=== PATIENT | female | born 1995 | race Caucasian/White ===

== ENCOUNTER 2017-01-27 22:37 | Inpatient (IN) | payer OTHER ==
[~2017-01-27] VITALS: Ht 175.3 cm; Wt 99.8 kg
[2017-01-27] MEDS ORDERED: MORPHINE SULFATE IV STA (22:58)
[2017-01-27] MEDS ORDERED: NS 1000ML 1,000 ML IV STA (22:58)
[2017-01-27] MEDS ORDERED: ZOFRAN IV STA (22:58)
--- NOTE | 2017-01-27 23:03 | ER.PDOC ---
General Chief Complaint: Abdomen Pain Stated Complaint: SEVERE R LOWER ABD PAIN Time seen by MD: 23:02 Source: patient Exam Limitations: no limitations History of Present Illness Initial Comments RLQ abdominal pain Timing/Duration: 1-3 hours Severity/Quality: moderate Radiation: no radiation Associated Symptoms: nausea/vomiting Exacerbated by: nothing Relieved By: nothing Allergies: Coded Allergies: No Known Allergies (Unverified , 01/11/14) Home Meds No Active Prescriptions or Reported Meds Vital Signs First Vital Signs Date Time Temp Pulse Resp B/P (MAP) Pulse Ox O2 Delivery O2 Flow Rate FiO2 01/27/17 22:45 98.5 118 22 98 01/27/17 22:55 124/47 (72) Last Vital Signs Date Time Temp Pulse Resp B/P (MAP) Pulse Ox O2 Delivery O2 Flow Rate FiO2 01/27/17 22:55 98.5 118 22 124/47 (72) 98 Past Medical History Medical History: no pertinent history Surgical History: no surgical history LMP (females 10-50): 01/18/2017 Social History Smoking: less than 1 pack/day Alcohol Use: occassionally Drug Use: none Constitutional: no symptoms reported Respiratory: no symptoms reported Cardiovascular: no symptoms reported Gastrointestinal: see HPI Genitourinary: no symptoms reported Musculoskeletal: no symptoms reported All Other Systems: Reviewed and Negative Physical Exam General Appearance: No Apparent Distress, WD/WN Neck: Non-Tender, Full Range of Motion, Supple, Normal Inspection Respiratory: chest non-tender, lungs clear, normal breath sounds, no respiratory distress, no accessory muscle use Cardiovascular: Normal Peripheral Pulses, Regular Rate, Rhythm, No Edema, No Gallop, No JVD, No Murmur Gastrointestinal: Normal Bowel Sounds, No Organomegaly, No Pulsatile Mass, Tenderness (RLQ) Back: Normal Inspection, No CVA Tenderness, No Vertebral Tenderness Extremities: Normal Range of Motion, Non-Tender, Normal Inspection, No Pedal Edema, No Calf Tenderness, Normal Capillary Refill, Pelvis Stable Neurologic/Psychiatric: sumo wrestler II-XII NML as Tested, No Motor/Sensory Deficits, Alert, Normal Mood/Affect, Oriented x [address] Carpenter present in the ED and admitted the patient. EKG/XRAY/CT/US CT Comments: Acute appendicitis Course Blood Pressure Systolic: 124 Blood Pressure Diastolic: 47 Blood Pressure Mean: 72 Departure Time of Disposition: 00:42 Disposition: 09 ADMITTED INPATIENT Impression: Primary Impression: Sepsis Additional Impressions: Acute appendicitis UTI (urinary tract infection) Condition: Stable Referrals: PCP,UNKNOWN (PCP) PRIMARY CARE PROVIDER Scripts No Active Prescriptions or Reported Meds Comments Admitted to Dr. Carpenter who will consult Doctor Rosario later this morning. Critical Care Note Total Time (mins): 74 Problem Qualifiers Primary Impression: Sepsis Sepsis type: sepsis due to unspecified organism Qualified Codes: A41.9 - Sepsis, unspecified organism Additional Impressions: Acute appendicitis Acute appendicitis type: unspecified acute appendicitis type Qualified Codes : K35.80 - Unspecified acute appendicitis UTI (urinary tract infection) Urinary tract infection type: site unspecified Hematuria presence: without hematuria Qualified Codes: N39.0 - Urinary tract infection, site not specified IRIS ATKINSON MD Jan 27, 2017 23:03
[2017-01-27] MEDS ORDERED: ZOFRAN ONE (23:11)
[2017-01-27] MEDS ORDERED: NS 1000ML 1,000 ML ONE (23:11)
[2017-01-27] MEDS ORDERED: MORPHINE SULFATE ONE (23:11)
[2017-01-27 23:12] LABS: BASOPHIL % 0.1 % (0.0-0.2); EOSINOPHIL # 0.1 10^3/uL (0.0-0.2); EOSINOPHIL % 0.3 % (0.0-5.0); HEMOGLOBIN 13.6 g/dL (12.0-15.0); LYMPHOCYTES # 2.6 10^3/uL (1.0-4.8); LYMPHOCYTES % 12.8 % (24.0-44.0); MEAN CELL HGB 29.4 pg (26-34); MEAN CELL HGB CONCENTRATION 33.2 g/dL (33-37); MEAN CORP VOLUME 88.7 fL (78-100); MEAN PLATELET VOLUME 10.4 fL (7.8-11.0); MONOCYTES # 1.3 10^3/uL (0.3-0.8); MONOCYTES % 6.3 % (5.0-12.0); NEUTROPHIL # 16.3 10^3/uL (1.8-7.7); NEUTROPHILS % 80.3 % (41.0-85.0); RED CELL DISTRIBUTION WIDTH 12.1 % (11.5-14.5); WHITE BLOOD CELL 20.3 10^3/uL (4.5-11.0)
[2017-01-27 23:17] LABS: BILIRUBIN,URINE NEGATIVE (NEGATIVE); UROBILINOGEN,URINE NORMAL (NEGATIVE)
[2017-01-27 23:27] LABS: CALCIUM 9.7 mg/dL (8.4-10.5); CARBON DIOXIDE 25.4 mmol/L (20.0-32)
[2017-01-27] MEDS ORDERED: ZOSYN 3.375 GRAM VIAL 3.375 GM in NS 100ML 100 ML IV STA (23:29)
[2017-01-27 23:36] LABS: APPEARANCE,URINE SLIGHTLY HAZY (CLEAR); UA COLOR YELLOW (YELLOW)
--- NOTE | 2017-01-27 23:40 | NUR ---
BLOOD CULTURES BLOOD CULTURES DRAWN X 2
[2017-01-28] VITALS (20 sets, daily range): BP systolic 107–149; BP diastolic 35–86
--- NOTE | 2017-01-28 00:08 | DIREP ---
PROCEDURE:CT ABDOMEN/PELVIS W/ CONTRAST COMPARISON:None. INDICATIONS:RLQ PAIN X 1 DAY, NAUSEA, 20K WBC TECHNIQUE:Axial images were created through the abdomen and pelvis with non-ionic intravenous contrast material. No oral contrast was administered. Sagittal and coronal reconstructions were performed from source images. FINDINGS: LUNG BASES:Normal. No visible pulmonary or pleural disease. LIVER:Normal. No significant liver lesions are identified. BILIARY:Normal. No visible dilatation or calcification. PANCREAS:Normal. No lesion, fluid collection, ductal dilatation, or atrophy. SPLEEN:Normal. No enlargement or focal lesion. ADRENALS:Normal. No mass or enlargement. URINARY TRACT:Normal. No focal lesions or hydronephrosis. AORTA/VASCULAR:Normal. No aneurysm. RETROPERITONEUM:Normal. No mass or adenopathy. BOWEL/MESENTERY:Small bowel is normal caliber. Terminal ileum is unremarkable. The retrocecal appendix is inflamed with stranding and mural enhancement and measures 11 mm in diameter. No evidence of perforation or abscess. There are several shotty mesenteric lymph nodes and in the right lower quadrant. ABDOMINAL WALL:Normal. No mass or hernia. PELVIC ORGANS:Normal. No visible mass. Pelvic organs appropriate for patient age. BONES:Normal for age. No bony lesion or acute fracture. OTHER:Negative. CONCLUSION: 1. Acute retrocecal appendicitis. No evidence of perforation or abscess formation. 2. This report was called by telephone at 12:06 am on January 28, [address] Gustavo Peacock Mba Dictated by: Saran Bro MD on 01/28/2017 at 00:04 AM
--- NOTE | 2017-01-28 00:20 | NUR ---
DR BERTHA BENEDICT MBA SPEAKING WITH DR STONE
[2017-01-28] MEDS ORDERED: NS 1000ML 1,000 ML ONE (00:32)
[2017-01-28] MEDS ORDERED: ZOSYN 3.375 GRAM VIAL IV ONE ×2 (00:32→06:04)
[2017-01-28] MEDS ORDERED: NS 100ML 100 ML IV ONE ×2 (00:32→06:03)
[2017-01-28] MEDS: NS IV SCH ×2 (00:50→01:22)
[2017-01-28] MEDS ORDERED: ZOFRAN IV PRN (01:00)
[2017-01-28] MEDS: NICOTINE 14MG PATCH TD SCH ×3 (01:00→11:24)
[2017-01-28] MEDS: NS 1000ML 1,000 ML IV SCH ×3 (01:00→21:00)
[2017-01-28] MEDS ORDERED: DUONEB 0.5 MG-3 MG/3 ML SOLN IH PRN (01:00)
--- NOTE | 2017-01-28 01:36 | NUR ---
RECEIVED PT FROM ER TRANSPORTED VIA WHEELCHAIR FROM ER TO ICU 1, ACCOMPANIED BY RAMA PLASENCIA. RECEIVED REPORT ACCORDINGLY. PT WITH ONGOING NS BOLUS 2ND BAG AND ZOSYN BOTH INFUSING TO LEFT AC 18G SITE. INTRODUCED SELF TO PT. HOOKED TO BEDSIDE MONITOR. INFORMED PT TO TEMPORARILY BE ON NPO UNTIL SURGICAL CONSULT HAS BEEN COMPLETED IN THE MORNING. AMENABLE. PT REFUSED TO WEAR A GOWN AND DECIDED TO USE HER OWN CLOTHES WHILE IN THE HOSPITAL. SEE ASSESSMENT.
--- NOTE | 2017-01-28 02:04 | NUR ---
NICOTINE PATCH REFUSED PT STATED THAT SHE IS OKAY WITHOUT AT THIS TIME.
--- NOTE | 2017-01-28 04:00 | NUR ---
PT REFUSED TO KEEP BP CUFF ON HER UPPER ARM. ENCOURAGED PT TO HAVE THE BP CUFF IN PLACE FOR CLOSE MONITORING OF BLOOD PRESSURE BUT TO NO AVAIL. HR ON SINUS RHYTHM 70s. CLOSELY MONITORED FOR DISTRESS. AFEBRILE
--- NOTE | 2017-01-28 04:30 | NUR ---
ASLEEP ON SEMI FOWLERS POSITION. VISIBLE SYMMETRICAL CHEST MOVEMENT. NON LABORED BREATHING APPARENT. AFEBRILE.
[2017-01-28] MEDS ORDERED: ZOSYN 3.375 GRAM VIAL 3.375 GM in NS 100ML 100 ML IV SCH (06:00)
--- NOTE | 2017-01-28 06:08 | NUR ---
FEBRILE TEMP 100/8 AX. COMPLAINT OF MILD HEADACHE. SEE PAIN ASSESSMENT. REMOVED BLANKETS AT THIS TIME.
[2017-01-28] MEDS: TYLENOL PO PRN ×2 (06:18→13:38)
--- NOTE | 2017-01-28 06:54 | NUR ---
REPORT TO AM SHIFT ENDORSED PT ACCORDINGLY.
--- NOTE | 2017-01-28 07:00 | NUR ---
RECEIVED REPORT ASSUMED CARE, RESTING QUIETLY, 0 S/S DISTRESS NOTED, CALL LIGHT IN REACH.
--- NOTE | 2017-01-28 07:15 | NUR ---
ASSESSMENT COMPLETED SEE INTERVENTIONS, PT ALERT AND ORIENTED, X5, PT WAS QUIET BUT PLEASANT. DENIED ANY PAIN AT THIS TIME, ABDOMEN NON-TENDER TO LIGHT PALPATION. TEMPERATURE ASSESSED AT THIS TIME 98.3. ORAL. SCD'S LYING AT THE BOTTOM OF THE BED. PT REFUSES SCD TREATMENT AT THIS TIME. PT TEACHING ON VTE PROPHYLAXIS. PT HAS ALSO REMOVED BP CUFF. SHE DID ALLOW ME TO ASSESS BP AT THIS TIME. PT TEACHING ON HIGH FALL RISK AND CALL LIGHT USE. VERBALIZED UNDERSTANDING. DENIED NEEDS. CALL LIGHT IN REACH.
--- NOTE | 2017-01-28 07:30 | NUR ---
DR LOZA AT BEDSIDE TO ASSESS PT AND DISCUSS TREATMENT PLAN WITH PT.
--- NOTE | 2017-01-28 08:05 | NUR ---
CONSENT SIGNED FOR SURGERY BY DR LOZA, THE PATIENT.
--- NOTE | 2017-01-28 08:15 | NUR ---
PT UP TO CHAIR FOR SURGICAL BATH WITH ANTI-BACTERIAL SURGICAL SOAP. GOWN, AND LINEN CHANGE. EKG LEAD CHANGE AND O2 SAT LEAD CHANGE. PT BACK TO BED, IV FLUIDS INFUSING VIA 18 GAUGE IN L AC. RESTING QUIETLY, 0 S/S DISTRESS NOTED, DENIED PAIN, DENIED NEEDS. CALL LIGHT IN REACH.
[2017-01-28] MEDS ORDERED: DECADRON ONE (08:36)
[2017-01-28] MEDS ORDERED: LIDOCAINE 2% VIAL ONE (08:36)
[2017-01-28] MEDS ORDERED: QUELICIN ONE (08:36)
[2017-01-28] MEDS ORDERED: DILAUDID ONE (08:36)
[2017-01-28] MEDS ORDERED: ZOFRAN ONE (08:36)
[2017-01-28] MEDS ORDERED: ZEMURON IV ONE (08:36)
[2017-01-28] MEDS ORDERED: NEOSTIGMINE ONE (08:36)
[2017-01-28] MEDS ORDERED: TORADOL ONE (08:36)
[2017-01-28] MEDS ORDERED: VERSED ONE (08:36)
[2017-01-28] MEDS ORDERED: LACTATED RINGERS 1,000 ML ONE (08:37)
[2017-01-28] MEDS ORDERED: PEPCID IV ONE (08:37)
[2017-01-28] MEDS ORDERED: NARCAN ONE (08:37)
[2017-01-28] MEDS ORDERED: DIPRIVAN IV ONE (08:37)
[2017-01-28] MEDS ORDERED: SUBLIMAZE ONE (08:37)
[2017-01-28] MEDS ORDERED: SODIUM CHLORIDE IR ONE (08:43)
[2017-01-28] MEDS ORDERED: GENTAMICIN SULFATE ONE (08:43)
[2017-01-28] MEDS ORDERED: SODIUM CHLORIDE IRR BAG 2,000 ML ONE (08:43)
--- NOTE | 2017-01-28 08:54 | NUR ---
RECEIVED CALL FROM OR CREW IS ON THE WAY FOR PATIENT AND STATES ORDERS FROM DR. LOZA TO GIVE LOVENOX 40MG SQ STAT.
--- NOTE | 2017-01-28 09:00 | NUR ---
OR STAFF ON UNIT TO TAKE PT FOR PROCEDURE REPORTED TO Rocky ROSALES RN. PT LEFT UNIT ACCOMPANIED BY FATHER. FATHER CARRIED PT BAG WITH PERSONAL BELONGINGS.
[2017-01-28] MEDS: LOVENOX SQ SCH (09:02)
[2017-01-28] MEDS ORDERED: SUBLIMAZE IV PRN (10:30)
[2017-01-28] MEDS ORDERED: DILAUDID IV PRN (10:30)
[2017-01-28] MEDS ORDERED: MORPHINE SULFATE IV PRN (10:30)
--- NOTE | 2017-01-28 10:57 | NUR ---
ARRIVAL PT ARRIVED FROM OR AT THIS TIME. REPORT RECEIVED FROM FREIDA RN AND ERINN SCRUGGS FROM ICU. PT AWAKE IN BED. C/O PAIN /10 TO LOWER ABD. FAMILY AT BEDSIDE.
[2017-01-28] MEDS: DILAUDID IV PRN ×3 (11:21→21:52)
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
--- NOTE | 2017-01-28 11:55 | OPH ---
DATE OF SURGERY: PREOPERATIVE DIAGNOSIS: Right lower quadrant pain with probable appendicitis. POSTOPERATIVE DIAGNOSIS: Acute appendicitis, retrocecal anatomy. SURGEON: Davidson Rosario DO PLASTIC FIXTURE BUILDER: OR staff. ANESTHESIA: General by Kelli Torres CRNA plus local used on the field. PROCEDURES PERFORMED: Laparoscopic-assisted appendectomy. SPECIMENS: Appendix to path. ESTIMATED BLOOD LOSS: 7 mL. COUNTS: At completion of the case, the counts were correct per OR staff. DESCRIPTION OF PROCEDURE: The patient is a 21-year-old female known from previous consult. Prior to procedure, informed consent was obtained. At time of procedure, she was taken to the operative suite and placed in supine position. After time-out was completed, general anesthesia was obtained. She was appropriately positioned and prepped and draped. Local was used to anesthetize supraumbilical. Midline incision was created and 5 mm trocar was introduced into the abdomen with Endo camera visualization. Once in the abdomen, pneumoperitoneum was induced to level of 14 mmHg. Next, under camera visualization, a 5 mm trocar was placed inferiorly and laterally in the left lower quadrant, one superiorly and laterally in the left lower quadrant. Attention was directed towards the right lower quadrant. The cecum was identified, gently lifted and mobilized laterally and retrocecally. The base of the appendix was identified, it was dissected. It was used to provide gentle traction and mobilize the cecum anteriorly. It was noted that the appendix was adhered in the retrocecal space with some acute inflammation. It was gently mobilized to allow exposure. The distal mesoappendix was taken down using Harmonic scalpel. Due to the limited access, the mesoappendix was dissected at the base using Harmonic scalpel and was taken down using Harmonic scalpel from proximal to distal fashion. Once the base was adequately isolated, junctional dissection was made to isolate the base of the appendix to the level of cecum. Two PDS Endoloops were placed around the base and they were divided. The appendix was divided distal to the Endoloops. Specimen was placed in an EndoCatch bag, removed through the inferior trocar and passed to backtable. Trocar was reinserted. The area of concern was noted to have some inflammatory fluid that was suctioned. Next, it was copiously irrigated and suctioned. A drain was passed into the inferior trocar site, placed into the right gutter and through the pelvis. It was secured at the point of exit using nylon suture. The trocar sites were localized using 0.5% Marcaine with epinephrine. The camera was placed in the superior trocar site laterally and the suction area was placed through the superior midline trocar site, placed suprahepatically. After the lateral trocar was removed with camera visualization through the trocar tract, pneumoperitoneum was reduced by active suction. Superior trocar was removed and closure was proceeded with. The remaining trocar sites were closed with 4-0 Monocryl. The patient was cleaned, Steri-Strip applied, dressings applied. Drapes removed. The patient tolerated these procedures well. There were no acute complications noted. Davidson Rosario DO DR: EVE/mireille JOB# [id number] CC: Jd Carpenter MD
[2017-01-28] MEDS: ZOSYN 3.375 GRAM VIAL 3.375 GM in NS 100ML 100 ML IV SCH ×2 (13:41→17:43)
--- NOTE | 2017-01-28 14:58 | NUR ---
AMBULATION PT UP AMBULATING IN HALLWAY AT THIS TIME
--- NOTE | 2017-01-28 15:54 | NUR ---
AMBULATION PT UP AMBULATING IN HALLWAY AT THIS TIME
[2017-01-28] MEDS ORDERED: GENASYME ONE (17:03)
[2017-01-28] MEDS ORDERED: GENASYME PO PRN (17:30)
--- NOTE | 2017-01-28 18:07 | NUR ---
REFUSAL EDUCATED PT MULTIPLE TIMES ABOUT CLEAR LIQUID DIET AND WHY ITS IMPORTANT AFTER SURGERY. PT STATES UNDERSTANDING DURING EACH EDUCATION SESSION, BUT REFUSES TO COMPLY. PT IN ROOM EATING SALAD. PT ALSO STATES "I DON'T THINK WALKING HELPS WITH THIS GAS PAIN. I THINK IT MAKES IT WORSE"
--- NOTE | 2017-01-28 19:12 | NUR ---
REPORT REPORT GIVEN TO ONCOMING SHIFT AND CARE RELINQUISHED
--- NOTE | 2017-01-28 20:59 | NUR ---
fPt was off the floor without notifing the staff and therefore her antibodic was late
--- NOTE | 2017-01-28 21:41 | CNH ---
DATE OF CONSULTATION: CHIEF COMPLAINT: Acute appendicitis. HISTORY OF PRESENT ILLNESS: This is a 21-year-old female with one day of right-sided abdominal pain. She reports at home the pain was sharp, she had some nausea and vomiting, but no nausea or vomiting today. She was evaluated by the Emergency Department and had an elevated white count. A CAT scan showed changes with acute retrocecal appendicitis. Currently, she is admitted to the ICU for the Med-Surg floor service of the hospitalist. At the time of my assessment, she is alert and pleasant, she reports her pain has improved with IV fluids, antibiotics, and pain medicine. PAST MEDICAL HISTORY: She denies. PAST SURGICAL HISTORY: She denies. ALLERGIES: NO KNOWN DRUG ALLERGIES. HOME MEDICATIONS: None. SOCIAL HISTORY: Positive for smoking tobacco and positive for alcohol. She denies illicit drug use. FAMILY HISTORY: Mother at age 39 from a motor vehicle accident. Father is living, age 52, has a recent diagnosis of diverticulitis. REVIEW OF SYSTEMS: CONSTITUTIONAL: She has had some fevers. No chills or weakness. ENDOCRINE: She denies thyroid disease or diabetes, seasonal allergies. GENITOURINARY: She denies a runny nose. She does admit to having a smoker's cough. CARDIOVASCULAR: No chest pain or trouble breathing. PULMONARY: No dyspnea. She does have some cough. ABDOMEN: As per the HPI. She does not report any changes in bowel or bladder habits. Her nausea and vomiting have improved today. GENITOURINARY: She denies dysuria, frequency, or urgency. NEUROLOGIC: She denies any seizures or blackouts. PSYCHIATRIC: She denies any depression, stress, or anxiety. MUSCULOSKELETAL: She denies any pain or stiffness or swelling in the muscle, joints, or bones. SKIN and INTEGUMENTARY: She denies any acute rashes, new moles, or changes. PHYSICAL EXAMINATION: GENERAL: This is a 5 feet, 9 inches female who's reported weight is 220 pounds per the EMR. BMI is 32.5. GENERAL APPEARANCE: Healthy, in no acute distress. VITAL SIGNS: Pulse is 87, blood pressure is normal as recorded in the electronic medical record, the last temperature is 98.3 degrees Fahrenheit, respiratory rate of 12. HEENT: Normocephalic and atraumatic. [place] and moist mucous membranes. NECK: Supple and soft. Trachea is midline. No JVD or thyromegaly. CARDIOVASCULAR: Heart has a regular rate and rhythm without murmur. RESPIRATORY: Lungs are clear to auscultation bilaterally anteriorly. ABDOMEN: The bowel sounds are positive. Soft. She has tenderness minimally in the right lower quadrant, but laterally in the right side of the abdomen, she has no Rovsing's. Vascular studies showed normal pulses x 4. EXTREMITIES: Show positive radial pulses, positive dorsal pedal pulses bilaterally. No clubbing, cyanosis, or edema. NEUROLOGIC: No acute focal findings. Cranial nerves 2 through 12 grossly intact. SKIN AND INTEGUMENT: Skin is warm and dry. LABORATORY STUDIES: CBC: White count 20.3, hemoglobin 13.6, platelet count 253. Chemistries: BUN of 11, creatinine 0.75, potassium low at 3.4. Coagulation studies: PT 10.4, PTT 25.4. Urinalysis: Specific gravity 1.[address] scan: Changes consistent with acute appendicitis, retrocecal appendix. SURGICAL ASSESSMENT: 1. Acute appendicitis with probable retrocecal location. 2. Clinical dehydration. 3. Hypokalemia. PLAN: 1. The patient was seen and examined and the chart was reviewed. 2. Continue medical management per the primary service. 3. I have requested for deep venous thrombosis prophylaxis and discussed with the patient the importance of compliance. Davidson Rosario DO DR: EVE/mireille JOB# [id number] CC: Jd Carpenter MD
[2017-01-29 01:04] VITALS: BP 110/68
[2017-01-29] MEDS: DILAUDID IV PRN ×2 (03:25→08:11)
[2017-01-29 05:06] VITALS: BP 112/70
[2017-01-29] MEDS: ZOSYN 3.375 GRAM VIAL 3.375 GM in NS 100ML 100 ML IV SCH ×4 (05:11→12:00)
[2017-01-29 05:39] LABS: BASOPHIL % 0.1 % (0.0-0.2); EOSINOPHIL % 0.2 % (0.0-5.0); HEMOGLOBIN 11.4 g/dL (12.0-15.0); LYMPHOCYTES % 22.8 % (24.0-44.0); MEAN CELL HGB 30.2 pg (26-34); MEAN CELL HGB CONCENTRATION 33.1 g/dL (33-37); MEAN PLATELET VOLUME 10.8 fL (7.8-11.0); MONOCYTES % 10.9 % (5.0-12.0); NEUTROPHIL # 5.9 10^3/uL (1.8-7.7); PLATELET COUNT 203 10^3/uL (150-400); RED CELL DISTRIBUTION WIDTH 12.4 % (11.5-14.5); WHITE BLOOD CELL 8.9 10^3/uL (4.5-11.0)
[2017-01-29 05:50] LABS: CARBON DIOXIDE 24.9 mmol/L (20.0-32)
[2017-01-29 05:51] LABS: CALCIUM 8.8 mg/dL (8.4-10.5)
[2017-01-29] MEDS: NS 1000ML 1,000 ML IV SCH (08:13)
[2017-01-29] MEDS: LOVENOX SQ SCH (08:13)
[2017-01-29] MEDS: NICOTINE 14MG PATCH TD SCH (08:14)
--- NOTE | 2017-01-29 11:05 | NUR ---
DISCHARGE PLAN CM VISITED WITH PATIENT CONCERNING HER DISCHARGE PLAN AND NEED. PATIENT STATED SHE LIVES @ HOME WITH HER DAUGHTER AND SHE HAS A GREAT SUPPORT SYSTEM THROUGH DAD AND STEP MOM WHOM IS A REGISTERED NURSE. PATIENT STATED SHE IS VERY INDEPENDENT ON ADLS AND SHE DOES NOT USE ANY TYPE OF DME FOR ASSISTANCE. PATIENT DID VOICE CONCERN REGARDING NEEDING ASSISTANCE WITH HER HOSPITAL STAY. SHE CURRENTLY HAS [place] [employer]. CM NOTIFIED SILVIA WILEY WITH [facility] REGARDING PATIENTS INSURANCE BARRIER. SILVIA STATED PATIENTS CURRENT INSURANCE WILL NOT COVER HOSPITAL BILL, BUT SHE BROUGHT PATIENT A PATRICIA APPLICATION AND EDUCATED ON THE PATRICIA PROGRAM PROCESS. CONTACT INFORMATION PROVIDED TO PATIENT AND PATIENT DENIES FURTHER NEEDS @ THIS TIME. CURRENT GOAL FOR PATIENT IS TO RETURN BACK HOME WITH FAMILY TO ROUTINE CARE UPON DISCHARGE. NO FURTHER CM OR DISCHARGE NEEDS KNOWN @ THIS TIME.
[2017-01-29 11:48] VITALS: BP 133/86
[2017-01-29] MEDS ORDERED: ACET1TAB34 PO (12:01)
[2017-01-29] MEDS ORDERED: AMOX1TAB63 PO (12:01)
--- NOTE | 2017-01-29 12:06 | PRM.DC ---
Discharge Summary Date of Arrival on Unit: Jan 28, 2017 Reason for Visit: Abdominal pain History Present Illness: (1) Sepsis Status: Resolved ICD Code: A41.9 - Sepsis, unspecified organism SNOMED: 07181473 (2) Acute appendicitis Status: Resolved ICD Code: K35.80 - Unspecified acute appendicitis SNOMED: 01248409 General: Alert, Oriented X3, Cooperative, No acute distress HEENT: PERRLA, EOMI Neck: Supple, No JVD Lungs: Clear to auscultation, Normal air movement Heart: Regular rate, Normal S1, Normal S2 Abdomen: Normal bowel sounds, Soft Extremities: No clubbing, No cyanosis, No edema Skin: No rashes, No breakdown Neuro: Normal gait, Normal speech, Strength at 5/5 X4 ext, Cranial nerves 3-12 NL Psych/Mental Status: Mental status NL, Mood NL Results(Labs/Rad) Laboratory Tests Test 01/29/17 05:22 White Blood Count 8.9 10^3/uL Red Blood Count 3.78 10^6/uL Hemoglobin 11.4 g/dL Hematocrit 34.4 % Mean Corpuscular Volume 91.0 fL Mean Corpuscular Hemoglobin 30.2 pg Mean Corpuscular Hemoglobin Concent 33.1 g/dL Red Cell Distribution Width 12.4 % Platelet Count 203 10^3/uL Mean Platelet Volume 10.8 fL Neutrophils (%) (Auto) 66.0 % Lymphocytes (%) (Auto) 22.8 % Monocytes (%) (Auto) 10.9 % Neutrophils # (Auto) 5.9 10^3/uL Lymphocytes # (Auto) 2.0 10^3/uL Monocytes # (Auto) 1.0 10^3/uL Eosinophils % 0.2 % Basophils % 0.1 % Basophils # 0.0 10^3/uL Eosinophil Count 0.0 10^3/uL Sodium Level 141 mmol/L Potassium Level 4.0 mmol/L Chloride Level 108.0 mmol/L Carbon Dioxide Level 24.9 mmol/L Anion Gap 12.1 Blood Urea Nitrogen 13 mg/dL Creatinine 0.84 mg/dL Estimated GFR () 102.6 BUN/Creatinine Ratio 15.0 Glucose Level 128 mg/dL Calcium Level 8.8 mg/dL Total Bilirubin 0.2 mg/dL Aspartate Amino Transf (AST/SGOT) 13 U/L Alanine Aminotransferase (ALT/SGPT) 19 U/L Alkaline Phosphatase 42 U/L Total Protein 6.0 g/dL Albumin 2.8 g/dL Globulin 3.2 Scheduled Acetaminophen With Codeine (Tylenol-Cod #3 Tablet), 1 EACH PO Q6HR Amoxicillin/Potassium Clav (Augmentin 875-125 Tablet), 1 TAB PO BID Sepsis Evaluation @ Discharge Course Blood Pressure Systolic: 133 Blood Pressure Diastolic: 86 Blood Pressure Mean: 102 Notes Ms Pat presented to the ER with abdominal pain, nausea and vomiting. Workup revealed acute appendicitis with SIRS criteria qualifying for sepsis. She received IV fluids and IV antibiotics. Surgery was consulted and she had an appendectomy without complications. She had a MORENO drain removed on day of discharge. She was ambulating outside frequently and denied any nausea or uncontrolled pain. She has follow up arranged with Surgery. Plan Discharge Date: Jan 29, 2017 Dicharge DX: 1. Sepsis, 2. Acute appendicitis, 3. Tobacco abuse Discharge Disposition: Stable Plan Medications per discharge list Recommend stop smoking Follow up with Dr Rosario next week Diet and activity per Surgery instructions Discharge plans discussed with patient, she is her own decision maker and does understand and concur with plans Time spent 25 minutes Problem Qualifiers (1) Sepsis: Sepsis type: sepsis due to unspecified organism Qualified Codes: A41.9 - Sepsis, unspecified organism (2) Acute appendicitis: Acute appendicitis type: unspecified acute appendicitis type Qualified Codes: K35.80 - Unspecified acute appendicitis JIE STONE MD Jan 29, 2017 12:06
[2017-01-29] MEDS ORDERED: TYLENOL #3 PO ONE ×2 (12:21→12:30)
[2017-01-29 12:30] VITALS: BP 133/86
--- NOTE | 2017-01-29 12:34 | NUR ---
discharge pt left ambulatory per her request to her private auto. discharge instruction given along with follow up date and time. pt verbalized understanding and denied further needs.
--- NOTE | 2017-01-29 23:55 | PNH ---
DATE: SUBJECTIVE: A 21-year-old female in no acute distress. She was seen earlier today with the nursing service on the floor and in my office. OBJECTIVE: VITAL SIGNS: Last temperature prior to discharge 98.3 degrees Fahrenheit, pulse 68, respiratory rate 18, blood pressure 133/86 mmHg. DRAIN SITE EXAM: Her drain output was noted to be serous. ABDOMEN: The incisions are intact. LABORATORY DATA: Laboratory studies today show white count 8.9, hemoglobin 11.4, platelet count 203. Chemistry today showed BUN 13, creatinine 0.84. ASSESSMENT: 1. Postoperative day #1, laparoscopic appendectomy for acute appendicitis. 2. Acute dehydration, improved. PLAN: 1. The patient was seen and examined and the chart was reviewed. 2. The drain is removed, tolerated by the patient. 3. She is advised to increase her activity and diet as tolerated. 4. She is discharged by the hospitalist service and is advised to follow up with me the next week. Davidson Rosario DO DR: EVE/mireille JOB# [id number] CC: Jd Carpenter MD
== END 2017-01-29 12:34 | disposition home or self-care (01) | DRG 854 ==
LOC: ER 22:37 → ICU 01-28 00:30 → MS 01-28 09:01
PROVIDERS: ADMIT Internal Medicine; ATTEND Internal Medicine
PROC: 0DTJ4ZZ Resection of Appendix, Percutaneous Endoscopic Approach (ICD-10-PCS; principal; 2017-01-28 09:14)
DX: A41.9 Sepsis, unspecified organism (principal); K35.80 Unspecified acute appendicitis; N39.0 Urinary tract infection, site not specified; F17.210 Nicotine dependence, cigarettes, uncomplicated; E86.0 Dehydration; E87.6 Hypokalemia
CPT/HCPCS: 36415; 74177; 80053; 81000; 81025; 85025; 85610; 87040; 87086; 88302; 96361; 96374; 96375; 99291; J0330; J1100; J1170; J1580; J1650; J1885; J2001; J2250; J2270; J2405; J2543; J3010; J3490; J7030; J7050; J7120; Q9967; J2310; J2710

== ENCOUNTER 2017-08-05 19:53 | Emergency (ER) | payer OTHER ==
[~2017-08-05] VITALS: Ht 172.7 cm; Wt 113.4 kg
[~2017-08-05 19:53] MED LIST: ACET1TAB34 PO; AMOX1TAB63 PO
[2017-08-05] MEDS ORDERED: LIDOCAINE 1% VIAL ONE (21:10)
[2017-08-05] MEDS ORDERED: BOOSTRIX VACCINE SYRINGE IM ONE (21:30)
--- NOTE | 2017-08-05 21:49 | ER.PDOC ---
General Chief Complaint: Requesting Medical Care Stated Complaint: FOOT WOUND Time seen by MD: 20:50 Source: patient Exam Limitations: no limitations History of Present Illness Initial Comments Walking on a barefoot, she stepped on a glass Where: street Severity: moderate Context: laceration Allergies: Coded Allergies: No Known Allergies (Unverified , 01/11/14) Home Meds Active Scripts Acetaminophen With Codeine (TYLENOL-COD #3 TABLET) 1 Each Tablet, 1 EACH PO Q6HR for 10 Days, #20 TAB Prov:JIE STONE MD 01/29/17 Amoxicillin/Potassium Clav (AUGMENTIN 875-125 TABLET) 1 Each Tablet, 1 TAB PO BID for 5 Days, #10 TAB Prov:JIE STONE MD 01/29/17 Past Medical History Medical History: no pertinent history Surgical History: appendectomy LMP (females 10-50): 3 weeks Social History Smoking: less than 1 pack/day Alcohol Use: occassionally Drug Use: none Review of Systems Constitutional: no symptoms reported EENTM: no symptoms reported Respiratory: no symptoms reported Cardiovascular: no symptoms reported Gastrointestinal: no symptoms reported Genitourinary: no symptoms reported Musculoskeletal: see HPI Skin: see HPI Psychiatric/Neurological: no symptoms reported Physical Exam General Appearance: Alert, No Apparent Distress Foot: see diagram (laceration 4 cm on plant and lateral aspect ) Ankle: nml inspection, non-tender, nml ROM, no joint swelling, skin intact Gait: normal Neuro: sensation nml, motor nml Vascular: no vascular compromise Tendons: tendon function nml Leg/Knee/Thigh: uninjured above ankle Skin: warm/dry Head/ENT: nml inspection, pharynx nml Neck/Back: nml inspection, non-tender Resp/CVS: no resp distress Abdomen: non-tender, no organomegaly Laceration/Wound Repair Laceration/Wound Repair : Wound Location: foot Wound Length (cm): 4 Wound cleaned: betadine Anesthesia type: local Anesthesia: 1% Lidocaine Volume Anesthetic (ccs): 10 Wound's Depth, Shape: superficial, linear, subcutaneous Irrigated w/ Saline (ccs): 20 Wound Explored: clean Tendon Intact: Yes Wound Debrided: minimal Wound Repaired With: sutures Suture Size/Type: 3:0, ethilon Suture Style: interupted Number of Sutures: 9 Course Blood Pressure Systolic: 162 Blood Pressure Diastolic: 83 Blood Pressure Mean: 109 Departure Time of Disposition: 21:48 Disposition: 01 HOME, SELF-CARE Impression: Primary Impression: Laceration of foot except toe alone Condition: Patient Instructions: Laceration Care, Adult Referrals: PCP,UNKNOWN (PCP) PRIMARY CARE PROVIDER Duration or Time Spent with Pa: 30 MASSIEL MOISE MD Aug 05, 2017 21:49
[2017-08-05] MEDS ORDERED: TRIPLE ANTIBIOTIC OINTMENT TP ONE (22:00)
[2017-08-05 22:19] VITALS: BP 162/83
== END 2017-08-05 22:18 | disposition home or self-care (01) ==
LOC: ER 19:53
DX: S91.319A Laceration without foreign body, unspecified foot, initial encounter (principal); F17.210 Nicotine dependence, cigarettes, uncomplicated; W25.XXXA Contact with sharp glass, initial encounter; Y93.89 Activity, other specified; Y92.89 Other specified places as the place of occurrence of the external cause; Y99.8 Other external cause status
CPT/HCPCS: 12002; 99283; J2001

== ENCOUNTER 2020-11-04 04:43 | Emergency (ER) | payer OTHER ==
[~2020-11-04] VITALS: Ht 175.3 cm; Wt 104.3 kg
[2020-11-04 05:00] VITALS: BP 162/92
--- NOTE | 2020-11-04 05:19 | ER.PDOC ---
General Chief Complaint: Vaginal Bleed Stated Complaint: POSS MISCARRIAGE Time seen by MD: 05:16 Source: patient Exam Limitations: no limitations History of Present Illness Initial Comments Patient complaining of vagina bleeding for last few days. She thinks that she might be because she took multiple tests at home which were inconclusive, so she decided to come in to cross check. She denies abdominal pain. Timing/Duration: intermittent Severity/Quality: moderate Vaginal Bleed: abnormal bleeding Test: home Associated Symptoms: denies symptoms Allergies: Coded Allergies: No Known Allergies (Unverified , 01/11/14) Home Meds Active Scripts Acetaminophen With Codeine (TYLENOL-COD #3 TABLET) 1 Each Tablet, 1 EACH PO Q6HR for 10 Days, #20 TAB Prov:JIE STONE MD 01/29/17 Amoxicillin/Potassium Clav (AUGMENTIN 875-125 TABLET) 1 Each Tablet, 1 TAB PO BID for 5 Days, #10 TAB Prov:JIE STONE MD 01/29/17 Past Medical History Medical History: no pertinent history Surgical History: appendectomy Family History Significant Family History: no pertinent family hx Social History Alcohol Use: none Drug Use: none Review of Systems Constitutional: no symptoms reported Respiratory: no symptoms reported Cardiovascular: no symptoms reported Gastrointestinal: no symptoms reported Genitourinary: see HPI Musculoskeletal: no symptoms reported All Other Systems: Reviewed and Negative Physical Exam General Appearance: No Apparent Distress, WD/WN Neck: nml inspection, non-tender Cardiovascular/Respiratory: Regular Rate, Rhythm, No M/R/G, Normal Peripheral Pulses, No JVD, Normal Breath Sounds, No Respiratory Distress Abdomen: Normal Bowel Sounds, Non Tender, Soft, No Organomegaly, No Pulsatile Mass Back: nml inspection Extremities: Normal Range of Motion, Non-Tender, Normal Inspection, No Pedal Edema, No Calf Tenderness, Normal Capillary Refill Neurologic/Psychiatric: quality supervisor II-XII NML as Tested, No Motor/Sensory Deficits, Alert, Normal Mood/Affect, Oriented x 3 Skin: Normal Color, Warm/Dry Lymphatic: No Adenopathy Results/Orders Results/Orders Orders - IRIS ATKINSON MD Urinalysis (11/04/20 04:59) Hcg Urine (11/04/20 04:59) Urine Culture (11/04/20 05:03) Vital Signs Date Time Temp Pulse Resp B/P (MAP) Pulse Ox O2 Delivery O2 Flow Rate FiO2 11/04/20 05:00 98.4 93 16 11/04/20 05:00 98.4 93 16 162/92 (115) 98 Room Air 11/04/20 05:00 98.4 93 16 98 Laboratory Tests Test 11/04/20 05:03 Urine Collection Type CCMS Urine Color RED Urine Appearance CLOUDY Urine Bilirubin NEGATIVE (NEGATIVE) Urine Ketones NEGATIVE (NEGATIVE) Urine Specific [place] 1.020 (1.005-1.030) Urine pH 5.5 (4.5-8.0) Urine Protein TRACE (NEGATIVE) H Urine Urobilinogen 0.2 E.U./dL (0.2) Urine Nitrate NEGATIVE (NEGATIVE) Urine Leukocyte Esterase SMALL (NEGATIVE) H Urine Glucose (Auto)(UA) NEGATIVE (NEGATIVE) Urine Blood LARGE (NEGATIVE) H Urine RBC TNTC RBC/HPF (NONE SEEN) H Urine WBC 5-10 WBC/HPF (0-2) H Urine Squamous Epithelial Cells MODERATE #/HPF (FEW) Urine Bacteria MODERATE (NONE SEEN) H Urine HCG, Qualitative NEGATIVE (NEGATIVE) Progress Progress Patient's test here is negative.Patient's test here is negative. ER DEPART Departure Time of Disposition: 05:44 Disposition: 01 HOME / SELF CARE / HOMELESS Impression: Primary Impression: Urinary tract infection Additional Impression: Menstrual bleeding problem Condition: Stable Referrals: PCP,UNKNOWN (PCP) PRIMARY CARE PROVIDER Additional Instructions: Ciprofloxacin Follow-up with your chemical tester in 2 to 3 days Return to ED if worsening or concerns Duration or Time Spent with Pa: 20 min Problem Qualifiers Primary Impression: Urinary tract infection Urinary tract infection type: site unspecified Hematuria presence: with hematuria Qualified Codes: N39.0 - Urinary tract infection, site not specified; R31.9 - Hematuria, unspecified IRIS ATKINSON MD Nov 04, 2020 05:19
[2020-11-04 05:20] LABS: BILIRUBIN,URINE NEGATIVE (NEGATIVE); UA COLOR RED; UROBILINOGEN,URINE 0.2 E.U./dL (0.2)
[2020-11-04 05:50] VITALS: BP 146/93
== END 2020-11-04 05:50 ==
LOC: ER 04:43
DX: N39.0 Urinary tract infection, site not specified (principal)
CPT/HCPCS: 81001; 81025; 87086; 99283

== ENCOUNTER → 2021-06-24 | Outpatient (CLI) | payer OTHER ==
--- NOTE | 2021-06-24 16:22 | DIREP ---
PROCEDURE:MRI ORBIT FACE & NECK W&W/O COMPARISON:None. INDICATIONS:H05.10 CHRONIC INFLAMMATORY DISORDERS OF ORBIT TECHNIQUE:A variety of imaging planes and parameters were utilized for visualization of suspected pathology. Images were performed without and with intravenous gadolinium contrast. FINDINGS: GLOBES:Normal. EXTRAOCULAR MUSCLES:Normal. OPTIC NERVES:Normal. LACRIMAL GLANDS:Normal. VENTRICLES:Normal. CEREBRUM:Normal. CEREBELLUM:Normal. BRAINSTEM:Normal. HEMORRHAGE:No MASS LESION:No ACUTE INFARCT:No BASAL CISTERNS:Normal. SKULL:Normal. OTHER:No abnormal postcontrast enhancement. Mild mucosal thickening in maxillary sinuses, ethmoid sinuses right frontal sinus. CONCLUSION:Unremarkable MRI brain and orbits with and without contrast. Mild mucosal thickening in sinuses. Dictated by: Ramesh Del Rosario M.D. on 06/24/2021 at 04:02 PM
== END | disposition home or self-care (01) ==
LOC: RAD 14:02
PROVIDERS: ATTEND Nurse Practitioner Family
DX: H05.10 Unspecified chronic inflammatory disorders of orbit (principal)
CPT/HCPCS: 70543; A9579

== ENCOUNTER → 2021-09-28 | Outpatient (CLI) | payer OTHER, SELFPAY ==
[~2021-09-28] MED LIST changes: -ACET1TAB34 PO; +ACET1TAB57 PO
[2021-09-28 16:15] LABS: MEAN CORP HGB 29.8 pg (26-34); RED CELL DISTRIBUTION WIDTH 11.4 % (11.5-14.5)
[2021-09-28 16:17] LABS: BILIRUBIN,URINE NEGATIVE (NEGATIVE); UROBILINOGEN,URINE 0.2 E.U./dL (0.2)
[2021-09-28 16:55] LABS: CARBON DIOXIDE 26.9 mmol/L (20.0-32)
--- NOTE | 2021-09-28 17:16 | PCM.EKG ---
[facility] Test Date: 2021-09-28 Test Time: 16:50:53 Pat Name: MELIZA MARQUEZ Department: Room: Gender: F Sanitary Plumber: : [phone] Requested By: PHYSICIAN UNDEFINED Order Number: [id number] Reading MD: Measurements Intervals [place] Rate: 71 P: 54 LA: 160 QRS: 72 QRSD: 98 T: 44 QT: 378 QTc: 411 Interpretive Statements Sinus rhythm No previous ECG available for comparison Please click the below link to view image of tracing.
--- NOTE | 2021-09-28 22:52 | DIREP ---
PROCEDURE:CHEST 2 VIEWS COMPARISON:[facility], CR, XRAY CHEST SINGLE VW, 12/04/2016, 09:53 AM. INDICATIONS:Z01.818 PREOPERATIVE EVALUATION FINDINGS: LUNGS/PLEURA:No significant pulmonary parenchymal abnormalities. No effusions. VASCULATURE:Normal. Unremarkable pulmonary vasculature. CARDIAC:Normal. No cardiac silhouette abnormality or cardiomegaly. MEDIASTINUM:Normal. No visible mass or adenopathy. BONES:Normal. No fracture or visible bony lesion. OTHER:Negative. CONCLUSION:No acute cardiopulmonary abnormality. Dictated by: Jose Carpenter M.D. on 09/28/2021 at 10:50 PM
== END | disposition home or self-care (01) ==
LOC: LAB 15:25
PROVIDERS: ATTEND Nurse Practitioner Family
DX: Z01.818 Encounter for other preprocedural examination (principal)
CPT/HCPCS: 36415; 71046; 80053; 81001; 83036; 83880; 85027; 87086; 93005